=== PATIENT | female | born 1985 | race Hispanic/Latino ===

== ENCOUNTER 2021-12-24 01:10 | Emergency (ER) | payer SELFPAY ==
[2021-12-24] MEDS ORDERED: ACETAMINOPHEN 500 MG TAB ONE (02:09)
--- NOTE | 2021-12-24 05:17 | ER ---
Nurse's Notes [facility] Name: Pinky Schreiber Age: 36 yrs Sex: Female : 1985 Arrival Date: 12/24/2021 Time: 01:13 Bed 5 Private MD: Diagnosis: Headache Presentation: 12/24 01:28 Chief complaint: Friend and/or Co-Worker states: pt c/o headache, vomiting, shaking x bb 20 minutes pt has hx of migraines. Coronavirus screen: headache, vomiting. Ebola Screen: No symptoms or risks identified at this time. Initial Sepsis Screen: Does the patient meet any 2 criteria? No. Patient's initial sepsis screen is negative. Does the patient have a suspected source of infection? No. Patient's initial sepsis screen is negative. Risk Assessment: Do you want to hurt yourself or someone else? Patient reports no desire to harm self or others. Onset of symptoms was December 24, 2021. 01:28 Method Of Arrival: Ambulatory bb 01:28 Acuity: LUCRETIA 3 bb Triage Assessment: 01:31 Headache History: The patient has had previous headaches. bb 05:22 Pain: Also complains of nausea. 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 - Social history:: Smoking status: Patient denies any tobacco usage or history of. Screenin:21 Abuse screen: Denies threats or abuse. Nutritional screening: No deficits noted. Tuberculosis screening: No symptoms or risk factors identified. Fall Risk None identified. Assessment: 01:40 General: Appears uncomfortable, Behavior is calm, cooperative. Pain: Complains of pain ll3 in H/A Pain currently is 9 out of 10 on a pain scale. Pain began 2 hours ago. Is continuous. Neuro: Level of Consciousness is awake, alert, obeys commands, Oriented to person, place, time, situation, Reports headache. Respiratory: Respiratory effort is even, unlabored, Respiratory pattern is regular, symmetrical. GI: Reports vomiting, Patient currently denies abdominal pain, constipation, diarrhea. Derm: Skin is pink, warm \T\ dry. 02:09 Reassessment: Pt tolerated PO challenge well, ERP notified. ll3 03:30 Reassessment: No changes from previously documented assessment. Patient and/or family ll3 updated on plan of care and expected duration. Pain level reassessed. Patient is alert, oriented x 3, equal unlabored respirations, skin warm/dry/pink. 04:55 Reassessment: No changes from previously documented assessment. Patient and/or family ll3 updated on plan of care and expected duration. Pain level reassessed. Patient is alert, oriented x 3, equal unlabored respirations, skin warm/dry/pink. Vital Signs: 01:28 BP 135 / 80; Pulse 87; Resp 18 S; Temp 97.4(TE); Pulse Ox 98% on R/A; Weight 99.79 kg bb (R); Height 5 ft. 1 in. (154.94 cm) (R); Pain 9/10; 03:30 BP 110 / 71; Pulse 91; Resp 16; Pulse Ox 99% on R/A; ll3 04:55 BP 111 / 67; Pulse 78; Resp 16; Pulse Ox 98% on R/A; ll3 05:22 BP 114 / 77; Pulse 74; Resp 16; kl 01:28 Body Mass Index 41.57 (99.79 kg, 154.94 cm) bb Marshall Coma Score: 05:15 Eye Response: spontaneous(4). Verbal Response: oriented(5). Motor Response: obeys mh7 commands(6). Total: 15. ED Course: 01:13 Patient arrived in ED. bp1 01:28 Eddi Baldwin MD is Attending Physician. 7 01:31 Triage completed. bb 01:31 Arm band placed on Patient placed in an exam room, on a stretcher. Family accompanied bb patient. 05:21 No provider procedures requiring assistance completed. Patient did not have IV access kl during this emergency room visit. 05:22 Patient has correct armband on for positive identification. kl Administered Medications: 02:02 Drug: Tylenol 1000 mg Route: PO; ll3 Medication: 05:22 VIS not applicable for this client. Outcome: 05:16 Discharge ordered by . 7 05:21 Discharged to home ambulatory. 05:21 Condition: improved 05:21 Discharge instructions given to patient, Instructed on discharge instructions, follow up and referral plans. Demonstrated understanding of instructions, follow-up care. 05:22 Patient left the ED. kl Signatures: Lavonne Romo RN RN kl Ballard, Brenda RN RN June Johnson Maurice, MD MD mh7 Alethea Edward RN RN ll3
--- NOTE | 2021-12-24 05:18 | EDPHYS ---
Physician Documentation [facility] Name: Pinky Schreiber Age: 36 yrs Sex: Female : 1985 Arrival Date: 12/24/2021 Time: 01:13 Bed 5 Private MD: ED Physician Eddi Baldwin HPI: 12/24 01:50 This 36 yrs old Female presents to ER via Ambulatory with complaints of mh7 Headache. 01:50 The patient complains of pain to the forehead. The patient describes the headache as mh7 intermittent, throbbing. 01:50 Onset: The symptoms/episode began/occurred today, 2 hour(s) ago. mh7 01:50 Associated signs and symptoms: Pertinent positives: nausea, vomiting, once, Pertinent mh7 negatives: altered mental status, dizziness, fever, malaise, neck stiffness, paresthesias, Photophobia rash, sinus congestion, sinus tenderness, vision changes, vision loss, weakness, vertigo. Severity of symptoms: At its worst the pain was moderate, earlier today, in the emergency department the pain has improved, markedly. Headache History: The patient has had previous headaches and this one is similar to previous episodes. The symptoms are alleviated by nothing. the symptoms are aggravated by stress. Patient states that she found out her was cheating and then cried a lot and then the headache started. Denies any other complaints.. 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 - Social history:: Smoking status: Patient denies any tobacco usage or history of. ROS: 01:50 Constitutional: Negative for fever, chills, and weight loss, Eyes: Negative for injury, mh7 pain, redness, and discharge, ENT: Negative for injury, pain, and discharge, Neck: Negative for injury, pain, and swelling, Cardiovascular: Negative for chest pain, palpitations, and edema, Respiratory: Negative for shortness of breath, cough, wheezing, and pleuritic chest pain, Abdomen/GI: Negative for abdominal pain, nausea, vomiting, diarrhea, and constipation, Back: Negative for injury and pain, : Negative for injury, bleeding, discharge, and swelling, MS/Extremity: Negative for injury and deformity, Skin: Negative for injury, rash, and discoloration, Allergy/Immunology: Negative for hives, rash, and allergies, Endocrine: Negative for neck swelling, polydipsia, polyuria, polyphagia, and marked weight changes, Hematologic/Lymphatic: Negative for swollen nodes, abnormal bleeding, and unusual bruising. 01:50 Psych: Positive for anxiety, Negative for depression, drug dependence, alcohol dependence, auditory hallucinations, visual hallucinations, homicidal ideation, insomnia, suicide gesture, suicidal ideation. Exam: 01:50 Constitutional: This is a well developed, well nourished patient who is awake, alert, mh7 and in no acute distress. Head/Face: Normocephalic, atraumatic. Eyes: Pupils equal round and reactive to light, extra-ocular motions intact. Lids and lashes normal. Conjunctiva and sclera are non-icteric and not injected. Cornea within normal limits. Periorbital areas with no swelling, redness, or edema. Neck: Trachea midline, no thyromegaly or masses palpated, and no cervical lymphadenopathy. Supple, full range of motion without nuchal rigidity, or vertebral point tenderness. No Meningismus. Chest/axilla: Normal chest wall appearance and motion. Nontender with no deformity. No lesions are appreciated. Cardiovascular: Regular rate and rhythm with a normal S1 and S2. No gallops, murmurs, or rubs. Normal PMI, no JVD. No pulse deficits. Respiratory: Lungs have equal breath sounds bilaterally, clear to auscultation and percussion. No rales, rhonchi or wheezes noted. No increased work of breathing, no retractions or nasal flaring. Abdomen/GI: Soft, non-tender, with normal bowel sounds. No distension or tympany. No guarding or rebound. No evidence of tenderness throughout. Back: No spinal tenderness. No costovertebral tenderness. Full range of motion. Skin: Warm, dry with normal turgor. Normal color with no rashes, no lesions, and no evidence of cellulitis. MS/ Extremity: Pulses equal, no cyanosis. Neurovascular intact. Full, normal range of motion. Neuro: Awake and alert, GCS 15, oriented to person, place, time, and situation. Cranial nerves II-XII grossly intact. Motor strength 5/5 in all extremities. Sensory grossly intact. Cerebellar exam normal. Normal gait. Psych: Awake, alert, with orientation to person, place and time. Behavior, mood, and affect are within normal limits. Vital Signs: 01:28 BP 135 / 80; Pulse 87; Resp 18 S; Temp 97.4(TE); Pulse Ox 98% on R/A; Weight 99.79 kg bb (R); Height 5 ft. 1 in. (154.94 cm) (R); Pain 9/10; 03:30 BP 110 / 71; Pulse 91; Resp 16; Pulse Ox 99% on R/A; ll3 04:55 BP 111 / 67; Pulse 78; Resp 16; Pulse Ox 98% on R/A; ll3 05:22 BP 114 / 77; Pulse 74; Resp 16; kl 01:28 Body Mass Index 41.57 (99.79 kg, 154.94 cm) bb Harvard Coma Score: 05:15 Eye Response: spontaneous(4). Verbal Response: oriented(5). Motor Response: obeys 7 commands(6). Total: 15. MDM: 05:15 Differential diagnosis: cluster headache, migraine, tension headache, anxiety. Data [facility] reviewed: vital signs, nurses notes. Data interpreted: Pulse oximetry: on room air is 98 %. Interpretation: normal. Counseling: I had a detailed discussion with the patient and/or guardian regarding: the historical points, exam findings, and any diagnostic results supporting the discharge/admit diagnosis, the need for outpatient follow up, to return to the emergency department if symptoms worsen or persist or if there are any questions or concerns that arise at home. Response to treatment: the patient's symptoms have resolved after treatment, the patient's blood pressure is in an acceptable range, mental status has returned to baseline, the patient no longer shows bradycardia, the patient is not short of breath, the patient is not tachycardic, the patient's pain is gone, the patient's temperature has normalized. Refusal of service: The patient/guardian displays adequate decision making capability and despite a detailed discussion of alternatives, benefits, risks, and consequences refuses: CT Scan, all lab tests. 05:16 Patient medically screened. 7 12/24 01:57 Order name: PO challenge; Complete Time: 02:09 [facility] Administered Medications: 02:02 Drug: Tylenol 1000 mg Route: PO; ll3 Disposition Summary: 12/24/21 05:16 Discharge Ordered Location: Home [facility] Problem: an acute exacerbation [facility] Symptoms: have improved [facility] Condition: Stable [facility] Diagnosis - Headache [facility] Followup: [facility] - With: Private Physician - When: 1 - 2 days - Reason: Worsening of condition, Recheck today's complaints, Continuance of care, Re-evaluation by your physician Discharge Instructions: - Discharge Summary Sheet [facility] - General Headache Without Cause [facility] - Stress, Adult [facility] Forms: - Medication Reconciliation Form [facility] - Thank You Letter [facility] - Antibiotic Education [facility] - Prescription Opioid Use [facility] Signatures: Olya Bray RN RN bb Eddi Baldwin MD MD [facility] Alethea Edward RN RN ll3
[2021-12-24 05:29] VITALS: TEMP 97.4
[2021-12-24 05:34] VITALS: O2SAT 98
[2021-12-24 05:36] VITALS: BP 114/77
== END 2021-12-24 05:22 | disposition home or self-care (01) ==
LOC: ER 01:10
DX: R51.9 Headache, unspecified (principal)
CPT/HCPCS: 99283